=== PATIENT | male | born 1960 | race Hispanic/Latino ===

== ENCOUNTER → 2018-07-23 | Outpatient (CLI) | payer MEDICARE | END | disposition home or self-care (01) | LOC: SHCH 12:45 | PROVIDERS: ATTEND Internal Medicine Cardiovascular Disease | DX: I87.2 Venous insufficiency (chronic) (peripheral) (principal) | CPT/HCPCS: 93970 ==

== ENCOUNTER → 2018-09-11 | Outpatient (CLI) | payer MEDICARE | END | disposition home or self-care (01) | LOC: SHCH 09:26 | PROVIDERS: ATTEND Internal Medicine Cardiovascular Disease | DX: I35.8 Other nonrheumatic aortic valve disorders (principal); I20.9 Angina pectoris, unspecified; R06.09 Other forms of dyspnea; R00.9 Unspecified abnormalities of heart beat; Z95.1 Presence of aortocoronary bypass graft | CPT/HCPCS: 93306 ==

== ENCOUNTER → 2023-12-07 | Outpatient (CLI) | payer MEDICARE | END | disposition home or self-care (01) | LOC: SHCH 13:51 | PROVIDERS: ATTEND Internal Medicine Cardiovascular Disease | DX: I87.2 Venous insufficiency (chronic) (peripheral) (principal); I73.9 Peripheral vascular disease, unspecified; K21.9 Gastro-esophageal reflux disease without esophagitis | CPT/HCPCS: 93925; 93970 ==